=== PATIENT | female | born 1950 | race Caucasian/White ===

== ENCOUNTER 2019-02-21 14:52 | Emergency (ER) | payer MEDICARE, MEDICAID ==
[~2019-02-21] VITALS: Ht 167.6 cm; Wt 74.3 kg
[~2019-02-21 14:52] MED LIST: ALBU18HF2 IH; ASPI-1264 PO; ATE25T PO; CHOL2000 PO; EZET10TA14 PO; FISH OIL 1,2001 EAC1 PO; FLUT1DIS4 IH; HYDR-3964 PO; HYDR25TA4 PO; VITA400C19 PO
[2019-02-21 14:56] VITALS: BP 151/76
[2019-02-21 16:12] LABS: CLARITY,URINE CLEAR (Clear); COLOR,URINE YELLOW (Yellow); GLUCOSE, URINE NEGATIVE (Neg); KETONES,URINE NEGATIVE (Neg); LEUKOCYTE ESTERASE ,URINE NEGATIVE (Neg); NITRITES, URINE NEGATIVE (Neg); OCCULT BLOOD,URINE NEGATIVE (Neg); PH,URINE 5.5 (4.8-8.0); PROTEIN,URINE NEGATIVE (Neg); UROBILINOGEN,URINE 0.2 E.U/dL (0.2-1.0)
[2019-02-21 16:13] LABS: UA COLLECTION TYPE CLN CATCH MIDSTREAM
== END 2019-02-21 16:36 | disposition home or self-care (01) ==
LOC: ER 14:53
DX: R30.0 Dysuria (principal); R35.0 Frequency of micturition; R31.9 Hematuria, unspecified; R10.30 Lower abdominal pain, unspecified; I48.91 Unspecified atrial fibrillation; I10 Essential (primary) hypertension; J45.909 Unspecified asthma, uncomplicated; Z90.49 Acquired absence of other specified parts of digestive tract; Z88.0 Allergy status to penicillin; Z88.1 Allergy status to other antibiotic agents; Z88.5 Allergy status to narcotic agent; Z88.2 Allergy status to sulfonamides; Z88.8 Allergy status to other drugs, medicaments and biological substances; Z79.82 Long term (current) use of aspirin; Z79.899 Other long term (current) drug therapy; Z56.0 Unemployment, unspecified; Z60.2 Problems related to living alone
CPT/HCPCS: 81003; 99283